=== PATIENT | male | born 1975 | race Caucasian/White ===

== ENCOUNTER 2016-12-21 20:18 | Observation (INO) | payer MEDICAID ==
[~2016-12-21] VITALS: Ht 177.8 cm; Wt 72.0 kg
[~2016-12-21 20:18] MED LIST: BUPR150T73 PO; HYDR50TA13 PO; RISP2TAB35 PO
[2016-12-21] MEDS ORDERED: LORazepam 1MG TABLET PO ONE ×2 (20:30→22:00)
[2016-12-21] MEDS ORDERED: LORazepam 1MG TABLET ONE ×2 (20:41→21:54)
[2016-12-21 20:42] LABS: DAU SCREEN DISCLAIMER
[2016-12-21 21:19] LABS: BLOOD UREA NITROGEN 7 mg/dL (7-18)
[2016-12-21 21:20] LABS: ACETAMINOPHEN < 2 mcg/mL (10-30)
[2016-12-22] MEDS ORDERED: NICOTINE 7 MG/24 HR PATCH.TD24 TD SCH (01:00)
[2016-12-22] MEDS ORDERED: ONDANSETRON ODT 4 MG PO PRN (01:00)
[2016-12-22] MEDS ORDERED: ACETAMINOPHEN 325 MG TABLET PO PRN (01:00)
[2016-12-22] MEDS ORDERED: POLYETHYLENE GLYCOL 17 GM PACKET PO PRN (01:00)
[2016-12-22] MEDS ORDERED: BISACODYL 10 MG SUPP PR PRN (01:00)
[2016-12-22 01:36] VITALS: BP 131/87
[2016-12-22] MEDS ORDERED: OLANZAPINE 5 MG TABLET PO PRN (02:30)
[2016-12-22 07:56] VITALS: BP 108/71
[2016-12-22] MEDS ORDERED: LORazepam 1MG TABLET PO PRN (08:00)
[2016-12-22] MEDS ORDERED: SENNA/DOCUSATE TABLET PO SCH (09:00)
== END 2016-12-22 11:50 ==
LOC: ED 21:39 → EDIP 23:44 → 3E 12-22 01:34
PROVIDERS: ADMIT Internal Medicine; ATTEND Internal Medicine
DX: F23 Brief psychotic disorder (principal); F20.0 Paranoid schizophrenia; R00.0 Tachycardia, unspecified; F15.10 Other stimulant abuse, uncomplicated; B19.20 Unspecified viral hepatitis C without hepatic coma; F17.210 Nicotine dependence, cigarettes, uncomplicated; F32.9 Major depressive disorder, single episode, unspecified; F41.0 Panic disorder [episodic paroxysmal anxiety]; F41.9 Anxiety disorder, unspecified; Z59.0 Homelessness; Z91.14 Patient's other noncompliance with medication regimen; Z91.5 Personal history of self-harm
CPT/HCPCS: 36415; 80048; 80307; 80329; 82040; 85025; 99285; G0378; G0480

== ENCOUNTER 2017-02-15 11:08 | Emergency (ER) | payer MEDICAID ==
[~2017-02-15] VITALS: Ht 177.8 cm; Wt 71.6 kg
[~2017-02-15 11:08] MED LIST changes: +CLON0.5T PO; +GABA300C10 PO; +RISP0.253 PO
[2017-02-15 11:10] VITALS: BP 130/82
[2017-02-15] MEDS ORDERED: CEPHALEXIN 500 MG CAPSULE ONE (11:48)
[2017-02-15] MEDS ORDERED: OXYcodone/APAP 5/325MG TABLET ONE (11:48)
[2017-02-15] MEDS ORDERED: IBUPROFEN 200 MG TABLET ONE (11:48)
[2017-02-15] MEDS ORDERED: SULFAMETH./TRIMETHOPRIM DS 800MG/160MG TABLET ONE (11:48)
[2017-02-15] MEDS ORDERED: IBUPROFEN 200 MG TABLET PO ONE (12:00)
[2017-02-15] MEDS ORDERED: OXYcodone/APAP 5/325MG TABLET PO ONE (12:00)
[2017-02-15] MEDS ORDERED: CEPHALEXIN 500 MG CAPSULE PO ONE (12:00)
[2017-02-15] MEDS ORDERED: SULFAMETH./TRIMETHOPRIM DS 800MG/160MG TABLET PO ONE (12:00)
== END 2017-02-15 12:38 | disposition home or self-care (01) ==
LOC: ED 12:25
DX: S80.02XA Contusion of left knee, initial encounter (principal); M71.10 Other infective bursitis, unspecified site; W19.XXXA Unspecified fall, initial encounter; Y93.89 Activity, other specified; Y92.098 Other place in other non-institutional residence as the place of occurrence of the external cause; Y99.8 Other external cause status
CPT/HCPCS: 99284